=== PATIENT | male | born 1990 | race Caucasian/White ===

== ENCOUNTER 2021-11-15 16:07 | Emergency (ER) | payer BC, SELFPAY ==
[2021-11-15 16:08] VITALS: BP 148/108; PULSE 92; RESP 18; TEMP 36.8; O2SAT 97; BMI 22.0
--- NOTE | 2021-11-15 16:33 | HMH.EDGENADL ---
ED Disposition Clinical Impression: Alcohol abuse Gastritis Qualifiers: Gastritis type: alcoholic Chronicity: acute Gastritis bleeding: without bleeding Qualified Code(s): K29.20 - Alcoholic gastritis without bleeding Disposition: Home, Self-Care Condition on Discharge: Good Instructions: DI for Alcoholic Gastritis Additional Instructions: Protonix as prescribed. You are being provided with a list of physicians available for follow-up of your condition. Please call a physician on this list to arrange a follow-up appointment as soon as possible. Return immediately if worsening abdominal pain, vomiting, shortness of breath, fever, vomiting of blood, passing blood, or abdominal distention. Prescriptions: Pantoprazole Sodium [Protonix 40mg tablet] 40 mg PO DAILY #15 tab Transmission Status: Pending to [facility] [id number] - Critical Care Critical Care Time: No Attestation: On , the high probability of a clinically significant, sudden or life threatening deterioration of the following system(s) required my full and direct attention, intervention and personal management. The time I documented below is in addition to time spent performing reported procedures but includes the following listed in this critical care notation. Medical Decision Making - Nikhil Inquiry Pt receiving controlled substance: No Vital Signs: 11/15/21 16:08 Temperature 98.3 F Temperature Source Oral Pulse Rate [Left Radial] 92 H Respiratory Rate 18 Blood Pressure [Right Arm] 148/108 H Blood Pressure Mean [Right Arm] 121 Blood Pressure Source [Right Arm] Automatic Cuff Blood Pressure Position [Right Arm] Sitting 02 Sat by Pulse Oximetry 97 Oxygen Delivery Method Room Air - Lab Data Lab Results 11/15/21 16:24: Urine Color Rae, Urine Appearance Clear, Urine pH 8.0, Ur Specific [place] 1.010, Urine Protein 1+, Urine Glucose (UA) Negative, Urine Ketones 1+, Urine Blood Negative, Urine Nitrate Negative, Urine Bilirubin 2+ A, Urine Urobilinogen 1.0, Ur Leukocyte Esterase Negative 11/15/21 16:24: Stool Occult Blood Negative 11/15/21 16:24: Sodium 131 L, Potassium 3.6, Chloride 92 L, Carbon Dioxide 26, Anion Gap 16.6 H, BUN 14, Creatinine 0.80, Estimated Creat Clear 126, Estimated GFR 114, Est GFR ( Amer) 137, Glucose 115 H, Calcium 8.9, Total Bilirubin 1.9 H, AST 154 H, ALT 220 H, Alkaline Phosphatase 59, Total Protein 8.0, Albumin 5.0, Globulin 3.0, Albumin/Globulin Ratio 1.7 11/15/21 16:24: WBC 5.5, RBC 5.30, Hgb 16.8, Hct 48.7, MCV 91.9, MCH 31.6 H, MCHC 34.4, RDW 12.3, Plt Count 237, MPV 7.4, Neut % (Auto) 77.4, Lymph % (Auto) 11.3, [place] % (Auto) 7.8, Eos % (Auto) 3.2, Baso % (Auto) 0.4, Neut # (Auto) 4.2, Lymph # (Auto) 0.6 L, [place] # (Auto) 0.4, Eos # (Auto) 0.2, Baso # (Auto) 0.0 11/15/21 16:24: PT 11.0, INR 0.97, APTT 26.1 Result diagrams: 11/15/21 16:24 11/15/21 16:24 Orders (Tests/Meds): ED MEDICATIONS Generic Name Dose Route Start Last Admin Trade Name Freq PRN Reason Stop Dose Admin Sodium Chloride 10 ml 11/15/21 16:41 Sodium Chloride 0.9% 10ml Vial IV 12/15/21 16:40 NEEDED PRN dilute protonix Discontinued Medications Generic Name Dose Route Start Last Admin Trade Name Freq PRN Reason Stop Dose Admin Sodium Chloride 1,000 mls @ 999 mls/hr 11/15/21 16:30 11/15/21 16:31 Sod Chlor 0.9% 1000ml Bag IV 11/15/21 17:30 999 mls/hr .Q1H1M LINDSEY Administration Ondansetron HCl 4 mg 11/15/21 16:26 11/15/21 16:31 Ondansetron 4mg/2ml Vial IV 11/15/21 16:27 4 mg ONCE ONE Administration Pantoprazole Sodium 40 mg 11/15/21 16:41 11/15/21 16:55 Pantoprazole 40mg Vial IV 11/15/21 16:42 40 mg ONCE ONE Administration Sodium Chloride 1,000 ml 11/15/21 16:39 Sodium Chloride 0.9% 1000ml Bag IV 11/15/21 16:40 BOLUS ONE ORDERS Category Date Time Status Diarrhea 6-11 Panel, Cdiff PCR Stat Lab 11/15/21 16:24 Received Urinalysis and Microscopic Stat L
[2021-11-15 16:57] LABS: Adenovirus F 40/41, stool Not Detected (NotDetected); Astrovirus Not Detected (NotDetected); Campylobacter Not Detected (NotDetected); Cryptosporidium Not Detected (NotDetected); Cyclospora Cayetanesis Not Detected (NotDetected); Entamoeba histolytica Not Detected (NotDetected); Enteroaggregative E coli Not Detected (NotDetected); Enteropathogenic E coli Not Detected (NotDetected); Enterotoxigenic E coli Not Detected (NotDetected); Giardia lamblia Not Detected (NotDetected); Microscopic, Urine URINE MICROSCOPIC (MICROSCOPIC); Norovirus Not Detected (NotDetected); Plesimonas Shigalloides, PCR Not Detected (NotDetected); Rotavirus A Not Detected (NotDetected); Salmonella, PCR Not Detected (NotDetected); Sapovirus Not Detected (NotDetected); Shiga-like toxin E coli Not Detected (NotDetected); Shigella Enterovasive E coli Not Detected (NotDetected); Vibrio Cholerae Not Detected (NotDetected); Vibrio, PCR Not Detected (NotDetected); Yersinia Entercolitica, PCR Not Detected (NotDetected)
[2021-11-15 17:01] LABS: Appearance,Urine CLEAR (Clear); Blood, Urine Negative (Negative); Color,Urine AMBER (Yellow); Glucose,Urine (UA) Negative (Negative); Ketones,Urine 1+ (Negative); Leukocyte Esterase,Urine Negative (Negative); Nitrate,Urine Negative (Negative); Protein,Urine 1+ (Negative)
[2021-11-15 17:06] LABS: Basophils % 0.4 % (0.1-2.0); Eosinophils # 0.2 K/mm3 (0.0-0.4); Eosinophils % 3.2 % (0.1-12.0); Hematocrit 48.7 % (42.0-52.0); Hemoglobin 16.8 g/dL (14.1-18.0); Lymphocytes # 0.6 K/mm3 (0.7-4.5); Lymphocytes % 11.3 % (10-50); Mean Corpuscular HGB Conc 34.4 g/dL (31.8-35.4); Mean Corpuscular Hemoglobin 31.6 pg (27.0-31.2); Mean Corpuscular Volume 91.9 fl (80-94); Mean Platelet Volume 7.4 fl (7.4-10.4); Monocytes # 0.4 K/mm3 (0.1-1.0); Monocytes % 7.8 % (1.7-9.3); Neutrophils # 4.2 K/mm3 (1.8-7.8); Neutrophils % 77.4 % (37.0-80.0); Platelet Count 237 K/mm3 (142-424); Red Cell Distribution Width 12.3 % (11.5-17.5); White Blood Count 5.5 K/mm3 (4.8-10.8)
[2021-11-15 17:08] LABS: Chloride 92 mmol/L (98-107)
[2021-11-15 17:09] LABS: Potassium 3.6 mmoL/L (3.5-5.1); Sodium 131 mmol/L (136-145)
[2021-11-15 17:11] LABS: Alanine Aminotransferase 220 U/L (12-78); Aspartate Amino Transferase 154 U/L (17-59); Blood Urea Nitrogen 14 mg/dl (9-20); Creatinine Clearance Estimated 126 mL/min (50-200); Estimated Glomerular Filt Rate 114 ml/min (>60); GFR (African American) 137 ML/MIN (>60); Occult Blood,Stool Negative (Negative)
[2021-11-15 17:12] LABS: Albumin/Globulin Ratio 1.7 (1.1-1.8); Alkaline Phosphatase 59 U/L (38-126); Anion Gap 16.6 mEq/L (5-15); Bilirubin,Total 1.9 mg/dl (0.2-1.3); Calcium 8.9 mg/dl (8.4-10.2); Carbon Dioxide 26 mmol/L (22.0-30.0); Glucose 115 mg/dl (74-100)
[2021-11-15 17:13] LABS: Activated Partial Thrombo Time 26.1 seconds (22.8-30.6); INR 0.97 (0.9-1.1)
[2021-11-15 17:18] LABS: Bilirubin,Urine 2+ (Negative)
[2021-11-15 18:11] LABS: Squamous Epithelial Cell,Urine Occasional #/hpf (0-5); WBC,Urine Occasional #/hpf (0-3)
[2021-11-15 18:42] VITALS: BP 127/97; PULSE 84; RESP 16; TEMP 36.6; O2SAT 97
[2021-11-15 20:27] LABS: Clostridium Difficile A/B, PCR Detected (NotDetected)
--- NOTE | 2021-11-16 17:31 | PC.NURSE ---
Attempted to call pt to inform him of stool sample results. No answer. Message left for pt to return call to the ED.
== END 2021-11-15 18:49 | disposition home or self-care (01) ==
PROVIDERS: Emergency Provider Emergency Medicine
DX: K29.20 Alcoholic gastritis without bleeding (principal); F10.10 Alcohol abuse, uncomplicated; F17.210 Nicotine dependence, cigarettes, uncomplicated; K62.5 Hemorrhage of anus and rectum
CPT/HCPCS: 80053; 81001; 82272; 85025; 85610; 85730; 87506; 96365; 96367; 99283; 99284; G0328; J2405

== ENCOUNTER 2023-07-25 08:20 | Emergency (ER) | payer SELFPAY ==
[2023-07-25 08:30] VITALS: BP 115/74; PULSE 67; RESP 18; TEMP 36.6; O2SAT 96; BMI 25.3
--- NOTE | 2023-07-25 08:30 | EXP.UTC ---
Discharge Plan Disposition Patient Disposition: Home, Self-Care Condition: Good Prescriptions Prescriptions: New ibuprofen [IBU] 800 mg tablet 800 mg PO Q8HP PRN (Reason: Moderate Pain) Qty: 30 0RF erythromycin 5 mg/gram (0.5 %) ointment 1 applic ophthalmic (eye) QID 7 Days Qty: 3.5 0RF Referrals Follow up/Referrals: Provider,Referral, [Primary Care Provider] - See instructions Activity Restrictions/Add. Instructions Additional Instructions/Restrictions: Use the eye medication as directed. Take ibuprofen for pain. I sent in a prescription to your pharmacy. Follow up with an eye doctor if your symptoms are not starting to improve within 48 to 72 hours. Follow up with your regular doctor. GO TO THE ER FOR ANY WORSENING SYMPTOMS OR CONCERNS Clinical Impressions Clinical Impression: Corneal abrasion, left Stand Alone Forms Stand Alone Forms: Work/School Release Instructions Patient Instructions: DI for Corneal Abrasion, Corneal Abrasion, Erythromycin Ophthalmic Discharge ED Provider: Lowell Lopez [facility] General Stated complaint: AO11/2@home, possible scratch on LT eye Time Seen by Provider: 07/25/23 08:30 History of Present Illness Provider Complaint: He states that he was opening a package when the corner of the plastic packaging contacted his left eye. He has had left eye pain, photosensitivity, excessive tearing since then. He states that he seems to be seeing normally in the eye when he can stand to keep it open. He denies the possibility of having a foreign body in the eye. Related Data Previous Rx's Medication Instructions Recorded erythromycin 5 mg/gram (0.5 %) eye 1 applic ophthalmic (eye) QID 7 07/25/23 ointment days #3.5 grams ibuprofen 800 mg tablet (IBU) 800 mg PO Q8HP PRN Moderate Pain 07/25/23 #30 tabs Allergies Allergy/AdvReac Type Severity Reaction Status Date / Time No Known Allergies Allergy Verified 07/25/23 08:41 [facility] Disclaimer: The information contained in this section may have been updated after the patient was seen, as this information can be updated by other users. Social History Smoking Status: Current every day smoker tobacco type: cigarettes packs per day: 1 alcohol intake: former current occupational status: employed Travel in the last 8 weeks: None ROS Obtained: Yes All systems reviewed & no additional complaints except as documented Constitutional Constitutional: Denies chills and Denies fever(s) Eyes Eyes: Reports as per HPI, Denies change in vision and Reports eye discharge ENT Ears, Nose, Mouth, and Throat: Denies dizziness, Denies otalgia and Denies sore throat Cardiovascular Cardiovascular: Denies chest pain Respiratory Respiratory: Denies shortness of breath, Denies chest congestion, Denies cough, Denies stridor and Denies wheezing Gastrointestinal Gastrointestingal: Denies nausea or vomiting Musculoskeletal Musculoskeletal: Reports system reviewed and no additional complaints, except as documented and Denies arthralgias Integumentary/Breasts Skin/Breast: Denies rash Neurologic Neurologic: Denies dizziness and Denies paresthesias Allergic/Immunologic Allergic/Immunologic: Denies wheezing Physical Exam General General appearance: alert and in no apparent distress Head Head exam: atraumatic, normocephalic and normal inspection Eye Eye exam: Present PERRL and EOMI Expanded Eye Exam Eyelids: left: erythema and right: normal inspection Pupils: Left: size (2), Right: size (2) and Bilateral: regular, round and reactive Sclera/Conjunctival: left: injection and right: normal inspection ENT ENT exam: Present normal exam, normal oropharynx, mucous membranes moist, TM's normal bilaterally and normal external ear exam Neck Neck exam: Present normal inspection, full ROM and trachea midline; Absent meningismus or lymphadenopathy Chest Chest inspection: Present normal
[2023-07-25 09:11] VITALS: BP 115/74; PULSE 67; RESP 18; TEMP 36.6; O2SAT 96
== END 2023-07-25 09:11 | disposition home or self-care (01) ==
PROVIDERS: Emergency Provider Nurse Practitioner Family
DX: S05.02XA Injury of conjunctiva and corneal abrasion without foreign body, left eye, initial encounter (principal); F17.210 Nicotine dependence, cigarettes, uncomplicated; W44.8XXA Other foreign body entering into or through a natural orifice, initial encounter
CPT/HCPCS: 99204; 99212; G0463

== ENCOUNTER 2024-12-21 15:36 | Emergency (ER) | payer SELFPAY ==
--- NOTE | 2024-12-21 15:42 | ED_ITS ---
Discharge Plan Disposition Patient Disposition: Home, Self-Care Condition: Good Prescriptions Prescriptions: No Action omeprazole 10 mg capsule,delayed release(DR/EC) 10 mg PO DAILY Referrals Follow up/Referrals: Provider,Referral, MD [Primary Care Provider] - See instructions Activity Restrictions/Add. Instructions Additional Instructions/Restrictions: Please return with any new or worsening symptoms. Clinical Impressions Clinical Impression: Encounter for medical assessment Print Language Print Language: Slovak Discharge ED Provider: David Serna Adult HPI General Chief complaint: Weakness Stated complaint: dizzy,headache,nausea,lots of sleeping Time Seen by Provider: 12/21/24 15:42 History of Present Illness HPI narrative: Patient presents for evaluation of transient altered mental status, now resolved, ongoing since the past weekend. at bedside reports personal and family concerns that patient has been acting drugged. Patient denies any recreational drug use. Does have history of alcohol use disorder. No headache or numbness or tingling or gait instability or focal findings. Patient is alert and oriented at this time. No medication changes or daily medications or new supplements. Please note that above description of symptoms, in this electronic medical record under categorization of recalled from ER triage doctor by RN are reflective of an initial nursing assessment, however, is not reflective of my full history and physical exam that was personally taken and clarified. Consequentially, this preceding description of symptoms, which may include the patient's categorized chief complaint in the EMR, do not reflect my personal clinical impression, and the ultimate description of history of present illness and patient stated complaints should be deferred to this section of the note. Unless stated otherwise or congruent with this section of the note, additional signs, symptoms, or incongruence should be interpreted as inaccurate with my clinical impression. Related Data Home Medications ?Medication ?Instructions ?Recorded ?Confirmed omeprazole 10 mg capsule,delayed 10 mg PO DAILY 12/21/24 12/21/24 release Allergies Allergy/AdvReac Type Severity Reaction Status Date / Time No Known Allergies Allergy Verified 12/21/24 15:13 [facility] Disclaimer: The information contained in this section may have been updated after the patient was seen, as this information can be updated by other users. Medical History Major depression Depression Migraines History of alcohol abuse Social History Smoking Status: Current every day smoker tobacco type: cigarettes packs per day: 1 alcohol intake: former current occupational status: employed Travel in the last 8 weeks: None Have you lived/traveled outside [place] in past 30 days?: No Contact w/someone who lives/traveled outside [place] past 30 days?: No Exposure to someone with infectious disease in past 14 days?: No Do you have a fever (greater than 100.4 F or 38 C)?: No Have you tested positive for COVID-19: No Exposed to someone with COVID-19 in past 14 days?: No Do you have a sore throat?: No Do you have a cough?: No Do you have any weakness?: No Do you have any diarrhea?: No Are you experiencing any unusual bleeding?: No Do you have any muscle aches/pain?: No Do you have any abdominal pain?: No Are you experiencing loss of taste or smell?: No Other Medical History Have you received the Flu Vaccine for this season: No Have you received the Pneumonia Vaccine: No ROS Obtained: Yes other As per HPI Physical Exam General General appearance: alert and in no apparent distress Head Head exam: atraumatic and normocephalic Eye Eye exam: Present normal appearance Neck Neck exam: Present normal inspection Chest Chest inspection: Present normal inspection and symmetric chest wall rise Respiratory Respiratory exam: Present normal lung sounds bilaterally; Absent respiratory distress Cardiovascular Cardiovascular exam: Present regular rate and normal rhythm Abdominal Exam Abdominal exam: Present soft Neurological Exam Neurological exam: Present alert and oriented X3 Psychiatric Psychiatric exam: Present normal affect and normal mood Skin Skin exam: Present warm and dry Medical Decision Making Medical Records Medical records reviewed: Yes I reviewed the patient's medical records. Screening: Per USPSTF and CDC recommendations, given the prevalence of disease in our region, it is our hospital?s policy to screen for HIV and viral Hepatitis for all patients aged 18 and over and those with ongoing risk factors. Nikhil Inquiry Pt receiving controlled substance: No Vital Signs: 12/21/24 15:53 12/21/24 18:22 Temperature 98.2 F 98.6 F Temperature Source Oral Oral Pulse Rate 47 L Pulse Rate [Right] 54 L Respiratory Rate 15 18 Blood Pressure 102/65 L Blood Pressure [Right Arm] 114/46 L Blood Pressure Mean [Right Arm] 68 Blood Pressure Source Automatic Cuff Blood Pressure Source [Right Arm] Automatic Cuff Blood Pressure Position Supine Blood Pressure Position [Right Arm] Supine 02 Sat by Pulse Oximetry 94 L Oxygen Delivery Method Room Air Room Air Lab Data Lab Results 12/21/24 15:59: WBC 6.5, RBC 4.63, Hgb 13.8 L, Hct 41.1 L, MCV 88.8, MCH 29.8, MCHC 33.6, RDW 12.7, Plt Count 191, MPV 9.4, Neut % (Auto) 78.1, Lymph % (Auto) 13.8, [place] % (Auto) 7.3, Eos % (Auto) 0.3, Baso % (Auto) 0.3, Neut # (Auto) 5.0, Lymph # (Auto) 0.9, [place] # (Auto) 0.5, Eos # (Auto) 0.0, Baso # (Auto) 0.0, Sodium 138, Potassium 3.9, Chloride 100, Carbon Dioxide 32 H, Anion Gap 9.9, BUN 13, Creatinine 0.90, Estimated Creat Clear 105, Estimated GFR 97, Est GFR ( Amer) 118, Glucose 90, Calcium 9.0, Magnesium 2.0, Total Bilirubin 0.7, AST 21, ALT 14, Alkaline Phosphatase 47, Total Protein 6.7, Albumin 4.0, Globulin 2.7, Albumin/Globulin Ratio 1.5, TSH 0.45 L, Free T4 0.86, Plasma/Serum Alcohol < 10, HCV Ab ROBERT w/Rflx PCR Qn Negative, HIV Ag/Ab Combo Qual Negative 12/21/24 16:23: Urine Opiates Screen Negative, Urine Methadone Screen Negative, Ur Barbituates Screen Negative, Ur Phencyclidine Scrn Negative, Ur Amphetamines Screen Negative, U Benzodiazepines Scrn Negative, Urine Cocaine Screen Negative, U Marijuana (THC) Screen Positive H 12/21/24 15:59 12/21/24 15:59 Orders (Tests/Meds): ORDERS Category Date Time Status CBC w/Auto Diff [Complete Blood Count Auto Diff] Stat Lab 12/21/24 15:59 Completed CMP [Comprehensive Metabolic Panel] Stat Lab 12/21/24 15:59 Completed Drug Screen,Urine Stat Lab 12/21/24 16:23 Completed Ethanol [Ethyl Alcohol] Stat Lab 12/21/24 15:59 Completed Free T4 (Free Thyroxine) Stat Lab 12/21/24 15:59 Completed HIV Combo Stat Lab 12/21/24 15:59 Completed Hepatitis C Ab Qual. W/ RFX Stat Lab 12/21/24 15:59 Completed MAG [Magnesium] Stat Lab 12/21/24 15:59 Completed TSH [Thyroid Stimulating Hormone] Stat Lab 12/21/24 15:59 Completed Medical Decision Narrative: Patient with history and exam per above presenting for evaluation of resolved altered mental status Diagnoses considered include intoxication, electrolyte abnormality, no clinical evidence at this time to suggest stroke or intracranial hemorrhage, insufficient evidence to warrant further workup for these pathologies. ED workup and treatment included: ORDERS Category Date Time Status CBC w/Auto Diff [Complete Blood Count Auto Diff] Stat Lab 12/21/24 15:59 Completed CMP [Comprehensive Metabolic Panel] Stat Lab 12/21/24 15:59 Completed Drug Screen,Urine Stat Lab 12/21/24 16:23 Completed Ethanol [Ethyl Alcohol] Stat Lab 12/21/24 15:59 Completed Free T4 (Free Thyroxine) Stat Lab 12/21/24 15:59 Completed HIV Combo Stat Lab 12/21/24 15:59 Completed Hepatitis C Ab Qual. W/ RFX Stat Lab 12/21/24 15:59 Completed MAG [Magnesium] Stat Lab 12/21/24 15:59 Completed TSH [Thyroid Stimulating Hormone] Stat Lab 12/21/24 15:59 Completed Labs were independently interpreted by me, significant for THC positive My clinical impression at this time is most consistent with surreptitious TCA toxicity. I discussed my clinical impression with patient and answered all questions. At this time, the evidence for any other entities in the differential is insufficient to warrant any further testing or ED observation. This was explained to the patient. The patient was advised that persistent or worsening symptoms require further evaluation. Critical Care Critical Care Time Critical Care Time: No
--- NOTE | 2024-12-21 15:50 | ECG_ITS ---
APPROVED REPORT Exam: Resting ECG HR:47 bpm ECG Measurements Heart Rate 47 AXES AK 212 P 69 QRSd 90 QRS 98 QT 383 T 72 QTc 345 Conclusion SINUS BRADYCARDIA WITH FIRST DEGREE AV BLOCK BORDERLINE RIGHT AXIS DEVIATION [QRS AXIS > 90] SEPTAL MYOCARDIAL INFARCTION , OF INDETERMINATE AGE [40+ ms Q WAVE IN V1/V2] ABNORMAL ECG UNCONFIRMED REPORT Electronically signed by : JAYDEN SOARES, 12/23/2024 05:17:34
[2024-12-21 15:53] VITALS: BP 114/46; PULSE 54; RESP 15; TEMP 36.8; O2SAT 94; BMI 21.2
[2024-12-21 16:11] LABS: Basophils % 0.3 % (0.1-2.0); Eosinophils % 0.3 % (0.1-12.0); Hematocrit 41.1 % (42.0-52.0); Hemoglobin 13.8 g/dL (14.1-18.0); Lymphocytes # 0.9 K/mm3 (0.7-4.5); Lymphocytes % 13.8 % (10-50); Mean Corpuscular HGB Conc 33.6 g/dL (31.8-35.4); Mean Corpuscular Hemoglobin 29.8 pg (27.0-31.2); Mean Corpuscular Volume 88.8 fl (80-94); Mean Platelet Volume 9.4 fl (7.4-10.4); Monocytes # 0.5 K/mm3 (0.1-1.0); Monocytes % 7.3 % (1.7-9.3); Neutrophils % 78.1 % (37.0-80.0); Platelet Count 191 K/mm3 (142-424); Red Blood Count 4.63 M/mm3 (4.60-6.20); Red Cell Distribution Width 12.7 % (11.5-17.5); White Blood Count 6.5 K/mm3 (4.8-10.8)
[2024-12-21 16:18] LABS: Alanine Aminotransferase 14 U/L (12-78); Albumin/Globulin Ratio 1.5 (1.1-1.8); Alkaline Phosphatase 47 U/L (38-126); Anion Gap 9.9 mEq/L (5-15); Aspartate Amino Transferase 21 U/L (17-59); Bilirubin,Total 0.7 mg/dl (0.2-1.3); Blood Urea Nitrogen 13 mg/dl (9-20); Carbon Dioxide 32 mmol/L (22.0-30.0); Chloride 100 mmol/L (98-107); Creatinine Clearance Estimated 105 mL/min (50-200); Estimated Glomerular Filt Rate 97 ml/min (>60); GFR (African American) 118 ML/MIN (>60); Globulin 2.7 g/dL (1.3-3.2); Glucose 90 mg/dl (74-100); Potassium 3.9 mmoL/L (3.5-5.1); Sodium 138 mmol/L (136-145); Total Protein,Serum 6.7 g/dl (6.3-8.2)
[2024-12-21 16:49] LABS: Thyroid Stimulating Hormone 0.45 uIU/mL (0.465-4.68)
[2024-12-21 17:17] LABS: Barbiturates Screen,Urine Negative ng/ml (<200)
[2024-12-21 17:18] LABS: Amphetamine/Metha Screen,Urine Negative ng/ml (<1000); Benzodiazepines Screen,Urine Negative ng/ml (<200)
[2024-12-21 17:19] LABS: Cocaine Screen,Urine Negative ng/ml (<300)
[2024-12-21 17:20] LABS: Cannabinoid Screen,Urine Positive ng/ml (<50); Methadone Screen,Urine Negative ng/ml (<300)
[2024-12-21 17:21] LABS: Opiate Screen,Urine Negative ng/ml (<300); Phencyclidine Screen,Urine Negative ng/ml (<25)
[2024-12-21 17:54] LABS: Ethyl Alcohol < 10 mg/dl (0-10)
[2024-12-21 18:00] LABS: Free T4 (Free Thyroxine) 0.86 ng/dl (0.78-2.19)
[2024-12-21 18:22] VITALS: BP 102/65; PULSE 47; RESP 18; TEMP 37
[2024-12-21 18:47] LABS: HIV Combo NEGATIVE (Negative)
[2024-12-21 18:55] LABS: Hepatitis C Ab Qual. W/ RFX NEGATIVE (Negative)
== END 2024-12-21 18:23 | disposition home or self-care (01) ==
PROVIDERS: Emergency Provider Emergency Medicine
DX: Z00.00 Encounter for general adult medical examination without abnormal findings (principal)
CPT/HCPCS: 80053; 80307; 80320; 83735; 84439; 84443; 85025; 86803; 87389; 93005; 99283